=== PATIENT | male | born 1960 | race American Indian/Alaskan Native ===

== ENCOUNTER → 2023-04-20 | Emergency (ER) | payer OTHER ==
[~2023-04-20] VITALS: Ht 170.2 cm; Wt 93.0 kg
[~2023-04-20] MED LIST: LIPITOR10 MG PO; OMEPRAZOLE20 MG PO; VAZALORE81 MG PO
--- OUTSIDE RECORDS SUMMARY | 2023-04-20 10:42 | XMS ---
PreManage Notification: ROBERT STRATTON Security Prescription Eyeglass Maker Events No recent Security Events currently on file [facility] There are no care providers on record at this time. Deric has no Care Guidelines for this patient. Lucas VISIT COUNT (12 MO.) 1 WENDY Toussaint TOTAL 1 NOTE: Visits indicate total known visits. ED/C VISIT TRACKING (12 MO.) 04/20/2023 10:38 WENDY Henriquez OR TYPE: Emergency COMPLAINT: - SOB INPATIENT VISIT TRACKING (12 MO.) No inpatient visits to display in this time frame [email or web address]
[2023-04-20 11:02] LABS: BASOPHILS 0.3 % (0-2); EOSINOPHILS 0.1 % (0-6); HEMATOCRIT 46.4 % (35.0-50.0); HEMOGLOBIN 15.3 g/dL (12.0-18.0); LYMPHOCYTES 6.3 % (24-44); MCH 28.1 (27-36); MCHC 32.9 g/dl (30-36); MCV 85.3 fl (81-99); MONOCYTES 4.7 % (0-12); NEUTROPHILS 88.6 % (39-80); PLATELET COUNT 336 K/uL (140-440); RBC 5.44 M/ul (4.3-5.7); RDW 14.3 (10.5-15.0)
[2023-04-20 11:26] LABS: ALBUMIN/GLOBULIN RATIO 0.53 (1.1-2.4); ANION GAP 11.3 (7-21); BILIRUBIN, TOTAL 1.2 ng/dL (0.2-1.0); BUN/CREATININE RATIO 17.17 (6.0-28.6); CALCIUM 8.7 mg/dL (8.5-10.1); CREATININE, SERUM 0.99 mg/dL (0.70-1.30); POTASSIUM 4.3 mmol/L (3.5-5.1); PROTEIN, TOTAL 8.7 g/dL (6.4-8.2)
[2023-04-20 11:31] LABS: INFLUENZA B NAA NEGATIVE (NEGATIVE); RESPIRATORY SYNCYTIAL VIR NAA NEGATIVE (NEGATIVE)
[2023-04-20 11:47] LABS: LACTIC ACID, BLOOD 1.9 mmol/L (0.4-2.0)
[2023-04-20 15:10] LABS: INR 1.19 (0.80-1.30); PARTIAL THROMBOPLASTIN TIME 27.7 Sec (22.9-41.3); PROTIME 14.6 Sec (11.2-14.2)
[2023-04-20 15:56] VITALS: BP 113/86
--- NOTE | 2023-04-21 05:58 | EKG ---
[facility] [address] [facility] [place] [address] Signed Sinus tachycardia Nonspecific T wave abnormality Abnormal ECG No previous ECGs available Confirmed by NICHOLE PEREZ MD ([id number]) on 04/21/2023 5:58:34 AM Electronically Signed By: NICHOLE PEREZ 04/21/23 0558 PATIENT NAME: ROBERT STRATTON Electrocardiogram DATE OF : 62 PHYSICIAN: NICHOLE PEREZ REPORT #: [id number] REPORT IS CONFIDENTIAL AND NOT TO BE RELEASED WITHOUT AUTHORIZATION
== END ==
LOC: ED 10:37
PROVIDERS: Emergency Medicine
DX: J96.01 Acute respiratory failure with hypoxia (principal); I21.9 Acute myocardial infarction, unspecified; J18.9 Pneumonia, unspecified organism; J84.10 Pulmonary fibrosis, unspecified; F17.200 Nicotine dependence, unspecified, uncomplicated; Z79.82 Long term (current) use of aspirin; Z79.899 Other long term (current) drug therapy; Z20.822 Contact with and (suspected) exposure to COVID-19
CPT/HCPCS: 36415; 71045; 71260; 80053; 83605; 83880; 84484; 85025; 85379; 85610; 85730; 87502; 93005; 93010; A9270; C9803; J0696; J1644; J1940; Q9967; U0002

== ENCOUNTER 2025-06-19 08:46 | Inpatient (IN) | payer OTHER ==
[~2025-06-19] VITALS: Ht 170.2 cm; Wt 81.5 kg
--- NOTE | ~2025-06-19 | CONS ---
[facility] [address] [place], [place] [address] Draft DATE OF CONSULTATION: 06/20/2025 HISTORY OF PRESENT ILLNESS: This 65-year-old Malian man has end-stage lung disease with pulmonary fibrosis and is chronically on CellCept for greater than 1 year as well as prednisone 20 mg daily. He is going through the various stages of needing of evaluation for possible lung transplant. He presented to the hospital yesterday on June 19, [address] Schroeder and ultimately Dr. Jacobs assumed his care for what was a posterior rectal abscess. He underwent a regional anesthetic. An incision and drainage of the posterior rectal abscess where a copious purulent material was noted. The wound was packed with Betadine-soaked gauze and secured in place. I assumed care today. The patient generally feels reasonably well, though he did have an episode of some hypotension earlier in the day with pressures down to 78 systolic and remained in the 81 to 98 systolic range today. His presentation showed his blood pressure to be 125/100. The notable finding in relation of the abscess was treatment going forward now with piperacillin intravenously. He has been given prednisone 7.5 mg daily and has ongoing use of CellCept, which is in anticipation of possible lung transplant in the future. He has no transplanted organ otherwise. The patient was advised by Dr. Jacobs to call his provider and inquire regarding his medication and whether the dose adjustment would be appropriate. I have a call out to the covering provider (normal provider Dr. Le at [phone] to verify this issue myself. The CellCept dose currently is 250 mg daily, prednisone 20 mg daily. The patient's medications in addition include aspirin 81 mg daily, Lipitor 10 mg daily, doxycycline 100 mg daily, CellCept 250 mg daily, omeprazole 20 mg daily, prednisone 20 mg daily, and torsemide 10 mg daily. Consultation was undertaken with . Earlier in the day and he was identified as having "septic shock" based on elevated white count, heart rate greater than in the 90s, respirations greater than a 20s, hypotension, and recent perirectal abscess drainage. He was started on daptomycin and continued on Zosyn. Recommendation was made to hold mycophenolate (CellCept) while treatment of the acute problem undertaken. The patient was additionally noted to be hyperglycemic with additionally elevated liver enzymes and creatinine elevation to 1.5, potassium of 5.2 with recommendation of Mays catheter. Since this morning, his pulse is now 102, blood pressure 98/75, pulse previously during PATIENT NAME: ROBERT STRATTON CONSULTATION DATE OF : 62 REPORT #: [id number] PHYSICIAN: ALTON DAMIAN MD PCP: JENI BRIDGES [facility] REPORT IS CONFIDENTIAL AND NOT TO BE RELEASED WITHOUT AUTHORIZATION [address] [address] Draft course of hypotension earlier was as high as 108. REVIEW OF SYSTEMS: The patient denies any shortness of breath other than the usual at this time. He is on oxygen. CHEST: Shows diminished respiratory excursion. He is not tachypneic at this time. ABDOMEN: Nondistended and nontender. Examination of the perineum shows bulkiness in the area of previous incision and drainage with packing densely within the wound itself. EXTREMITIES: Clubbing of fingernails. LABORATORY DATA: Lab study this morning at 0751 shows white count of 28,000, previously 12.49, hematocrit 44.8, platelets 159,000, previously 180. Chem profile for later today is pending. ASSESSMENT: The patient has complex underlying problems including relative immunosuppression with CellCept. I have a call out to his fisher lobster regarding the importance of CellCept and whether it can be discontinued, which I would recommend as well. Steroid should be given primarily on the basis of acute stress and at stress dose, which would be hydrocortisone 100 mg IV q.8 hours. We will initiate that pending my discussion with the fisher lobster. We will continue IV antibiotics as described. He does not look particularly troubled while on the medical floor, but an intensive care unit bed for close monitoring may be advisable. As regards his wound packing that will be removed tomorrow and might be even sooner. It is densely packed in and in general terms might be considered for a knotted Carson drain to facilitate drainage, though drainage extensively has occurred yesterday already. MD MAIN López/AIYANA /[id number] cc: Shukri Jacobs MD Copies: SHUKRI JACOBS MD PATIENT NAME: ROBERT STRATTON CONSULTATION DATE OF : 62 REPORT #: [id number] PHYSICIAN: ALTON DAMIAN MD PCP: JENI BRIDGES [facility] REPORT IS CONFIDENTIAL AND NOT TO BE RELEASED WITHOUT AUTHORIZATION [facility] [address] [facility] [place], [place] [address] Draft ~ PATIENT NAME: ROBERT STRATTON Martinez CONSULTATION DATE OF : 62 REPORT #: [id number] PHYSICIAN: ALTON DAMIAN MD PCP: JENI BRIDGES [employer] [facility] REPORT IS CONFIDENTIAL AND NOT TO BE RELEASED WITHOUT AUTHORIZATION
[2025-06-19] MEDS ORDERED: CELLCEPT250 MG PO (09:23)
[2025-06-19] MEDS ORDERED: PREDNISONE20 MG PO (09:23)
[2025-06-19] MEDS ORDERED: TORSEMIDE10 MG PO (09:23)
[2025-06-19] MEDS ORDERED: DOXYCYCLINE HY100 MG PO (09:24)
[2025-06-19 09:52] LABS: BASOPHILS 0.5 % (0.2-1.2); EOSINOPHILS 1.4 % (0.8-7.0); LYMPHOCYTES 9.7 % (21.8-53.1); MCH 28.7 PG (25.7-32.2); MCHC 31.0 g/dL (32.3-36.5); MCV 92.6 fL (79.0-92.2); MONOCYTES 6.1 % (5.3-12.2); NEUTROPHILS 82.1 % (34.0-67.9); RBC 5.02 M/uL (4.63-6.08)
[2025-06-19 10:16] LABS: ALT (SGPT) 28.0 U/L (14-59); AST (SGOT) 26.0 U/L (15-37); GLOMERULAR FILTRATION RATE,EST 101.0 mL/min (>60); PROTEIN, TOTAL 6.9 g/dL (6.4-8.2); UREA NITROGEN 11.0 mg/dL (7-18)
[2025-06-19] MEDS ORDERED: PIPERACILLIN/TAZOBACTAM 4.5 GM in SODIUM CHLORIDE 0.9% 100 ML IV ONE (11:30)
[2025-06-19] MEDS ORDERED: MIDAZOLAM HCL 2 MG/2 ML VIAL ONE (16:06)
[2025-06-19] MEDS ORDERED: LIDOCAINE HCL 2% 5 ML SDV ONE (16:06)
[2025-06-19] MEDS ORDERED: fentaNYL citrate 100 MCG/2 ML VIAL ONE (16:06)
[2025-06-19] MEDS ORDERED: BUPIVACAINE 0.75% IN DEXTROSE 2 ML AMP ONE (16:06)
[2025-06-19] MEDS ORDERED: fentaNYL citrate 50 MCG/ML SDV IV PRN (17:15)
[2025-06-19] MEDS ORDERED: NALOXONE HCL 0.4 MG SYR IV PRN (17:15)
[2025-06-19] MEDS ORDERED: IBLOOD GLUCOSE TEST STRIP 1 EA TEST VI PRN (17:15)
[2025-06-19] MEDS ORDERED: PROCHLORPERAZINE EDISYLATE 10 MG/2 ML VIAL IV PRN (17:15)
[2025-06-19] MEDS ORDERED: MORPHINE SULFATE 4 MG/ML VIAL IV PRN ×2 (17:30)
[2025-06-19] MEDS ORDERED: HYDROCODONE/ACETA 7.5/325 TAB PO PRN ×2 (17:30)
--- NOTE | 2025-06-19 17:51 | NUR ---
06/19/25 1751 Sheets,Jie 1730 PT ARRIVED TO PACU ON 6L VIA MASK, PT COUGHING OFF AND ON AND WAKES EASILY. O2 SAT 79% AND DEEP BREATHING ENCOURAGED. PT ROLLED TO BACK AND HOB INCREASED. O2 INCREASED TO 15L, O2 SLOWING INCREASING. PT BASELINE 5L O2 AT HOME AND REPORTS 02 SAT 84-92% AT HOME. 1750 O2 DECREASED TO 10L, O2 SAT MID 90S. PT REPORTS "I CAN FEEL IT BUT ITS NOT HURTING TOO BAD." PT FALLS ASLEEP OFF AND ON.
[2025-06-19 18:15] VITALS: BP 104/64
[2025-06-19 19:07] VITALS: BP 94/80
--- NOTE | 2025-06-19 19:09 | NUR ---
Patient to the medical floor. Patient awake, alert and oriented x3, no acute distress. Patient's bp soft, unchanged from trending bp in surgery, per FILM PAINTER report. Patient is on 10L oxygen per mask, rr shallow/24bpm. Per report, pt is on a lung transplant list. Patient has packing to sasha-rectal wound. Patient oriented to room and call light. Patient denies acute needs at this time.
[2025-06-19 19:26] VITALS: BP 105/82
--- NOTE | 2025-06-19 19:28 | NUR ---
ADMIN MORPHINE 2MG IV FOR REPORTS OF 7/10 RECTAL PAIN.
--- NOTE | 2025-06-19 19:46 | NUR ---
Pt on 12L O2, cpox at bedside. no c/o sob. 6L chronic at [facility], helpful with change of shift visual assessment of rectal packing in place. Family in room
--- NOTE | 2025-06-19 20:13 | NUR ---
Dr Lee in room, RT in room Pt on Oxymask at this time
[2025-06-19 20:20] VITALS: BP 94/69
[2025-06-19] MEDS ORDERED: HEParin SOD (PORCINE) 5,000 UNIT/ML SDV SUB-Q SCH ×2 (21:00)
[2025-06-19 21:20] VITALS: BP 96/69
[2025-06-19] MEDS ORDERED: PIPERACILLIN/TAZOBACTAM 4.5 GM in DEXTROSE 5% 100 ML IV SCH ×2 (22:00)
--- NOTE | 2025-06-19 22:18 | NUR ---
PT ON HIGH FLOW O2 NC, POST OP CPOX AT BEDSIDE. MOIST PRODUCTIVE COUGH OF WHITE/CREAMY THICK PHLEGM, LUNGS CRACKLES AND DIM AT BASES, CHRONIC O2 USE AT BASELINE 6L/NC AT HOME. RECTAL PACKING DRESSING IN PLACE, CYANOTIC NAILS, ADOLFO SALLOW SKIN COLORING. HOB ELEVATED. STATED "I PEED WHEN I WAS INSIDE READY TO GO TO SURGERY", DENIES NEED TO URINATE AT THIS TIME. TOLERATING LIQUIDS WELL. FAMILY IN ROOM
[2025-06-20] VITALS (25 sets, daily range): BP systolic 67–164; BP diastolic 51–147
--- NOTE | 2025-06-20 00:03 | NUR ---
Resting, eyes closed, on High flow O2, post op CPOX at bedside sats 92%. no s/sx discomfort. Family in room
--- NOTE | 2025-06-20 00:35 | NUR ---
more awake, alert andoriented, on High Flow O2 30L 90%. no s/sx resp distress at this time. puding and crackers given on requets, no c/o pain. cpox on at bedside sats 93%
--- NOTE | 2025-06-20 01:12 | NUR ---
used call light, c/o being too warm, room temp decreased from 75 to 70, he removed his bed covers. no c/o pain, more pudin and water given
--- NOTE | 2025-06-20 02:51 | NUR ---
Resting, 30L 90%, high flow O2. CPOX at bedside, sats 93%. repositions slef in bed, hob elevated, no s/sx distress
[2025-06-20] MEDS ORDERED: LIDOCAINE 2% VISCOUS 6 ML SYR TOP ONE ×2 (05:30)
[2025-06-20] MEDS ORDERED: SODIUM CHLORIDE 0.9% 1,000 ML IV SCH ×2 (05:30)
--- NOTE | 2025-06-20 05:34 | NUR ---
---8276 - PT C/O RECTAL PAIN, AND ABD FOLLEN OUT OF WOUND. ABD TO R UPPER GLUTEAL AREA PACKING IN PLACE, ABD CHANGED. MEDICATED WITH MORPHINE 4MG IV, HAS NOT REQUIRED ANY PAIN MED PRIOR TO. NO VOID SINCE ADMIT TO FLOOR, BLADDER SCANNED 459CC IN BLADDER, URINAL GIVEN, PT STATED "I DONT GO THAT OFTEN, BUT WHEN I DO IT TAKES ME A WHILE AND THEN I FILL THE POT". URINAL IN PLACE, A TEENA DROPS OF DARK URINE NOTED. ---3157 - PT REPOSITIONED IN BED, HOB ELEVATED. ALERT AND ORIENTED, VITALS OBTAINED 98P, R22, 78/52 MAP 57, SATS 88% ON 30L 90% HIGH FLOW O2 NC. LUNGS WITH CRACKLES BEFORE NO CHANGES. VS RETAKEN NUMEROUS TIMES WITH NO CHANGES. ---9989 - DR JACOBS NOTIFIED VIA PHONE ABOUT PTS VITALS, BLADDER SCANNING RESULTS AND PT BEING ON HIGH FLOW AT THIS TIME. PT ALERT AND ORIENTED. NEW ORDERS FOR 250CC NS/HR IVF BOLUS X1. AND MAY INSERT INDWELLING F/C IF NOT VOIDED, AND WILL CALL DR WINCHESTER FOR CONSULT FOR PT"
--- NOTE | 2025-06-20 05:52 | NUR ---
IVF STARTED, PT STILL TRYING TO URINATE USING URINAL, AWARE IF NO VOID BY 0600 A F/C WILL BE INSERTED, STATED UNDERSTANDING
--- NOTE | 2025-06-20 06:17 | NUR ---
ALERT AND ORIENTED, IVF BOLUS INFUSING. STILL UNABLE TO URINATE. F/C 16FR W 10CC WATER BALLOON INSERTED W/O PROBLEMS, UROJECT USED. PROCEDURE EXPLAINED, PT STATED UNDERSTANDING, INMEDIATE RETURN OF DARK YELLOW COLORED URINE
--- NOTE | 2025-06-20 06:54 | NUR ---
IVF 250cc bolus completed, bp 86/61 map 67, R 20, P98
--- NOTE | 2025-06-20 07:06 | NUR ---
RECIEVED REPORT FROM SHAY GRIFFIN. PT IS RESTING IN BED WITH EYES OPEN. HI-FLOW NC IS IN PLACE, PT SATTING 91%. PT DENIES ANY NEEDS AT THIS TIME, CALL LIGHT AND PERSONAL BELONGINGS ARE WITHIN REACH.
[2025-06-20 07:56] LABS: BASOPHILS 0.4 % (0.2-1.2); EOSINOPHILS 0.1 % (0.8-7.0); LYMPHOCYTES 6.3 % (21.8-53.1); MCH 29.3 PG (25.7-32.2); MCHC 30.6 g/dL (32.3-36.5); MCV 95.9 fL (79.0-92.2); MONOCYTES 5.1 % (5.3-12.2); NEUTROPHILS 87.6 % (34.0-67.9); RBC 4.67 M/uL (4.63-6.08)
[2025-06-20 08:24] LABS: ALT (SGPT) 263.0 U/L (14-59); AST (SGOT) 321.0 U/L (15-37); GLOMERULAR FILTRATION RATE,EST 54.0 mL/min (>60); PROTEIN, TOTAL 6.7 g/dL (6.4-8.2); UREA NITROGEN 15.0 mg/dL (7-18)
[2025-06-20 08:27] LABS: LACTIC ACID, BLOOD 1.7 mmol/L (0.4-2.0)
[2025-06-20] MEDS ORDERED: GLUCAGON,HUMAN RECOMBINANT 1 MG/ML VIAL SUB-Q PRN (10:00)
[2025-06-20] MEDS ORDERED: DEXTROSE 50% 50 ML SYR IV PRN ×2 (10:00)
[2025-06-20] MEDS ORDERED: DEXTROSE 5% 1,000 ML IV PRN (10:00)
[2025-06-20] MEDS ORDERED: POLYETHYLENE GLYCOL 3350 1 PACKET PO PRN (10:00)
[2025-06-20] MEDS ORDERED: LACTATED RINGER'S 1,000 ML IV SCH ×2 (10:00→12:00)
[2025-06-20] MEDS ORDERED: IBLOOD GLUCOSE TEST STRIP 1 EA TEST XX PRN (10:00)
[2025-06-20] MEDS ORDERED: DAPTOmycin 500 MG/10 ML VIAL IV SCH (10:00)
--- NOTE | 2025-06-20 10:30 | NUR ---
DARSHANA from Dr. Rodarte to monitor for BMP results this evening @ 1800. Per Dr. Rodarte, if creatinine increases stop IV fluids and update him of results. Dr. Rodarte to place order for lab.
--- NOTE | 2025-06-20 10:35 | NUR ---
PT RESTING IN BED, VISITING WITH DAUGHTER. VAPOTHERM SECURELY ON FACE. CALL LIGHT AND PERSONAL BELONGINGS ARE WITHIN REACH.
--- NOTE | 2025-06-20 10:39 | NUR ---
PT'S DAUGHTER APPROACHED THIS RN WITH A CONCERN. PT'S DAUGHTER STATED THAT PT IS ON AN ANTI-REJECTION MEDICATION AT HOME. DAUGHTER REPORTED THAT PT WAS INSTRUCTED TO NOT STOP TAKING MEDICATION, DUE TO "POTENTIAL ORGAN FAILURE". DAUGHTER REPORTS THE LAST TIME PT STOPPED MEDICAITON "COLD [place]UR[place]", THAT "HE GOT VERY SICK". PLACED CALL TO DR. JACOBS. DR. JACOBS SAID PT IS UNABLE TO TAKE THIS MEDICATION AT THIS TIME, DUE TO IT INTERFERING WITH HEALING. DR. JACOBS STATED PT'S DAUGHTER NEEDED TO CALL PRESCRIBING DAUGHTER AND "MAKE THEM FIGURE IT OUT.. SEE WHAT THEY CAN DO." DAUGHTER REPORTS SHE DID CALL THEM, BUT THEY WILL NOT DO ANYTHING BECAUSE SHE IS NOT "SOMEONE CALLING DIRECTLY FROM THE HOSPITAL."
--- NOTE | 2025-06-20 10:56 | NUR ---
PLACED CALL TO HOSPITALIST TO NOTIFY MD OF PT NOT BEING ABLE TO TAKE ANTI-REJECTION HOME MEDICATION; AWARE.
[2025-06-20] MEDS ORDERED: IBLOOD GLUCOSE TEST STRIP 1 EA TEST VI SCH (12:00)
[2025-06-20] MEDS ORDERED: INSULIN LISPRO 100 UNIT/ML ML SUB-Q SCH (12:00)
--- NOTE | 2025-06-20 12:13 | NUR ---
PT SITTING UP IN BED WITH DINNER TRAY AT THIS TIME. DAUGHTER REMAINS AT BEDISIDE. VAPOTHERM SECURELY IN PLACE, CPOX AT BEDSIDE
--- NOTE | 2025-06-20 14:27 | NUR ---
PT IS RESTING IN BED WITH EYES CLOSED, RR EVEN AND UNLABORED. HOB IS ELEVATED. VAPOTHERM IS SECURELY IN PLACE. PT IS SATTING 93%. CALL LIGHT AND PERSONAL BELONGINGS ARE WITHIN REACH, DAUGHTER REMAINS IN ROOM
[2025-06-20] MEDS ORDERED: HYDROCORTISONE SOD SUCCINATE 100 MG/2 ML VIAL IV SCH (15:30)
[2025-06-20] MEDS ORDERED: PANTOPRAZOLE SODIUM 40 MG/10 ML VIAL IV SCH (15:30)
[2025-06-20] MEDS ORDERED: MIDAZOLAM HCL 2 MG/2 ML VIAL ONE (15:43)
[2025-06-20] MEDS ORDERED: fentaNYL citrate 100 MCG/2 ML VIAL ONE (15:43)
--- NOTE | 2025-06-20 15:51 | NUR ---
PT BROUGHT OVER FROM MED SURG PER DR DAMIAN ORDER. PT AWAKE AND ALERT, DAUGHTER WITH PT. PT ON VAPOTHERM 30L/90%. PACKING FROM SURGICAL SITE REMOVED BY DR DAMIAN.
--- NOTE | 2025-06-20 16:17 | NUR ---
PT RESTING ON VAPOTHERM. RR 22, SPO2 91%, HR 100-107. IV STEROIDS GIVEN PER NEW ORDER FROM DR DAMIAN.
--- NOTE | 2025-06-20 17:07 | NUR ---
LAB IN TO DRAW
--- NOTE | 2025-06-20 17:19 | NUR ---
DR LOPES IN TO SEE PT.
[2025-06-20 17:30] LABS: GLOMERULAR FILTRATION RATE,EST 52.0 mL/min (>60); UREA NITROGEN 20.0 mg/dL (7-18)
[2025-06-20] MEDS ORDERED: ACETAMINOPHEN 325 MG TAB PO PRN (20:15)
[2025-06-20] MEDS ORDERED: LACTATED RINGER'S 250 ML IV SCH (20:15)
[2025-06-20] MEDS ORDERED: FAMOTIDINE 20 MG/ 2 ML VIAL IV SCH (21:00)
[2025-06-20 21:58] LABS: ALT (SGPT) 621.0 U/L (14-59); AST (SGOT) 843.0 U/L (15-37); GLOMERULAR FILTRATION RATE,EST 47.0 mL/min (>60); PROTEIN, TOTAL 6.9 g/dL (6.4-8.2); UREA NITROGEN 22.0 mg/dL (7-18)
[2025-06-21] VITALS: BP 85/59
[2025-06-21] MEDS ORDERED: LACTATED RINGER'S 500 ML IV ONE (00:45)
[2025-06-21] MEDS ORDERED: LACTATED RINGER'S 250 ML IV SCH (00:45)
[2025-06-21 01:00] VITALS: BP 96/75
[2025-06-21 01:51] LABS: BLOOD/HGB, URINE LARGE (Negative); KETONE, URINE TRACE (Negative); LEUK ESTERASE, URINE SMALL (negative); NITRITE, URINE POSITIVE (negative)
[2025-06-21 02:00] VITALS: BP 102/83
[2025-06-21 02:11] LABS: EPITHELIAL CELLS, URINE NONE SEEN /lpf (0-1+)
[2025-06-21 02:12] LABS: BACTERIA, URINE 2+ /hpf (negative); CASTS, URINE NONE SEEN \\lpf; CRYSTALS, URINE AMORPHOUS URATES 2+ (0-1+); REFLEX CULTURE, URINE Yes (No)
--- NOTE | 2025-06-21 02:20 | NUR ---
Pt laying on R side, "I coughed and somethng came out. Pt on vapotherm. Pleasant and cooperative. noted that soiled ABD had some sanguineous drainge. and some drainage noted on bedding. Replaced over R upper buttock/cleft crease open area. attends placed on. f/c patent draining dark sai colored urine. Pt was able to follow directins and turn to place Chux and attends under him. Procedure completed and nurse was walking out of room. Pt started coughing harsh moist productive cough present. started panicking, not responsive to verbal instrution, flinging arms everywhere, scared anxious eyes and not receptive at all to instructions. started sitting pt up via bed. CCU charge and Primary RN came in to room. and pt started relaxing. Daugther in room explained, "He gets tht way when he cant get his breath and panicks". Pt more relaxed and back to being self, sob with exertion was noted Resp 28, P 107, sats dropped to 80's in mid of his anxiety attack. Vapother is at 40L and increased FiO to 100%. new cpox probe applied. currently sitting up position in bed, calmer
--- NOTE | 2025-06-21 02:53 | NUR ---
PATIENT RELAXED IN BED AT THIS TIME, CHANGED OXYGEN SENSOR TO NOSE, WITH MUCH BETTER PLETH READING PATIENT MAINTAINING 90% AND GREATER, FIO2 ON VAPOTHERM TITRATED BACK DOWN TO 90% FROM 100% AT THIS TIME. PATIENT ASKED FOR WARM BLANKET AND WANTS TO TRY TO SLEEP NOW.
[2025-06-21 03:00] VITALS: BP 92/74
[2025-06-21 04:00] VITALS: BP 80/62
[2025-06-21 05:24] LABS: BASOPHILS 0.2 % (0.2-1.2); EOSINOPHILS 0 % (0.8-7.0); LYMPHOCYTES 4.1 % (21.8-53.1); MCH 29.4 PG (25.7-32.2); MCHC 31.1 g/dL (32.3-36.5); MCV 94.6 fL (79.0-92.2); MONOCYTES 4.0 % (5.3-12.2); NEUTROPHILS 91.3 % (34.0-67.9); RBC 4.66 M/uL (4.63-6.08)
[2025-06-21 05:53] LABS: GLOMERULAR FILTRATION RATE,EST 46.0 mL/min (>60); PROTEIN, TOTAL 6.6 g/dL (6.4-8.2); UREA NITROGEN 24.0 mg/dL (7-18)
[2025-06-21 06:27] VITALS: BP 93/71
[2025-06-21 06:54] LABS: ALT (SGPT) 1343.0 U/L (14-59); AST (SGOT) 2148.0 U/L (15-37)
[2025-06-21] MEDS ORDERED: FUROSEMIDE 20 MG/2 ML VIAL IV ONE (07:30)
[2025-06-21] MEDS ORDERED: ALBUMIN HUMAN 25% 100 ML BTL IV ONE (07:45)
--- NOTE | 2025-06-21 07:46 | NUR ---
CALLED TO UPDATE ON NIGHT AND AM LABS. NEW ORDERS FOR LABS, CT AND ALBUMIN.
--- NOTE | 2025-06-21 08:01 | NUR ---
Dr Dhillon updated on morning labs and low urine output- lasix ordered
[2025-06-21 08:23] LABS: INR 2.01 (0.80-1.30); PROTIME 21.5 Sec (11.2-14.2)
--- NOTE | 2025-06-21 09:04 | NUR ---
DR LOPES IN AT BEDSIDE
--- NOTE | 2025-06-21 09:29 | NUR ---
CALL PLACED TO [place] [facility] REGARDING POSSIBLE TRANSFER. AWAITING CALL BACK TO HEAR ABOUT BED SPACE
--- NOTE | 2025-06-21 11:44 | NUR ---
[facility] HERE, REPORT GIVEN, PT SWITCHED OVER TO THEIR MONITOR.
--- NOTE | 2025-06-21 12:05 | NUR ---
PT LEFT WITH [facility] TEAM.
--- NOTE | 2025-06-21 13:04 | NUR ---
REPORT CALLED TO DOMINGUEZ DAY AT [place].
[2025-06-22 14:48] LABS: HEPATITIS A ANTIBODY, IGM Negative (Negative); HEPATITIS C AB CIA INTERP Negative (Negative); HEPATITIS C ANTIBODY CIA INDEX 0.04 IV (())
== END 2025-06-21 12:05 | disposition short-term general hospital (02) | DRG 853 ==
LOC: ED 08:46 → CCU 17:26 → MS 17:26 → CCU 06-20 15:45
PROVIDERS: Emergency Medicine; Internal Medicine; Student in an Organized Health Care Education/Training Program; ADMIT Surgery; ATTEND Surgery
PROC: 3E03329 Introduction of Other Anti-infective into Peripheral Vein, Percutaneous Approach (ICD-10-PCS; principal; 2025-06-19 17:01)
PROC: 0D9P0ZZ Drainage of Rectum, Open Approach (ICD-10-PCS; principal; 2025-06-19 17:01)
PROC: 30233J1 Transfusion of Nonautologous Serum Albumin into Peripheral Vein, Percutaneous Approach (ICD-10-PCS; principal; 2025-06-19 17:01)
DX: A41.9 Sepsis, unspecified organism (principal); R65.21 Severe sepsis with septic shock; K61.1 Rectal abscess; D84.821 Immunodeficiency due to drugs; N17.9 Acute kidney failure, unspecified; F17.210 Nicotine dependence, cigarettes, uncomplicated; Z99.81 Dependence on supplemental oxygen; J84.10 Pulmonary fibrosis, unspecified; K21.9 Gastro-esophageal reflux disease without esophagitis; I10 Essential (primary) hypertension; E78.5 Hyperlipidemia, unspecified; E87.5 Hyperkalemia; E11.65 Type 2 diabetes mellitus with hyperglycemia; R79.89 Other specified abnormal findings of blood chemistry; T38.0X5A Adverse effect of glucocorticoids and synthetic analogues, initial encounter; Z79.899 Other long term (current) drug therapy; Z79.82 Long term (current) use of aspirin; Z87.01 Personal history of pneumonia (recurrent); Z79.52 Long term (current) use of systemic steroids; Z87.39 Personal history of other diseases of the musculoskeletal system and connective tissue
CPT/HCPCS: 00902; 36415; 71045; 74176; 74177; 76942; 80048; 80053; 80074; 81001; 82550; 83036; 83605; 83735; 83880; 85025; 85060; 85610; 87205; 94762; 94799; A9270; J0878; J1644; J1720; J1938; J2003; J2250; J2270; J2405; J2470; J2543; J3010; J7030; J7121; J7512; P9047; Q9967